=== PATIENT | female | born 2000 | race Caucasian/White ===

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

== ENCOUNTER 2023-06-02 13:45 | Outpatient (CLI) | payer BC ==
[~2023-06-02] VITALS: Ht 160 cm; Wt 89.1 kg
[~2023-06-02 13:45] MED LIST: FOLIVANE-OB1 CAP PO
[2023-06-02 14:15] VITALS: BP 123/71; PULSE 84; TEMP 98
--- NOTE | 2023-06-02 16:02 | NUR ---
PATIENT HERE AT 1345 FOR LABOR CHECK. VSS. CATEGORY 1 TRACING WITH A REACTIVE STRIP. SVE 4:80:-2. PATIENT CTX EVERY 3-[address] CHANG STRIPPED PT MEMBRANES YESTERDAY IN OFFICE. SVE 4:80:-2 YESTERDAY. SVE UPON ARRIVAL 4:80:-2. 1 HOUR RECHECK PATIENT THE SAME SVE. DR FRANCO CALLED AT 1530 TO UDATE ON [address] FRANCO OK TO DC TO HOME. PATIENT EDUCATED ON PRECAUTIONS AND SENT HOME AT 1600. PT AMBULATED OFF UNIT WITH SPOUSE
== END 2023-06-02 16:00 | disposition home or self-care (01) ==
LOC: LDRO 13:45
DX: Z34.93 Encounter for supervision of normal pregnancy, unspecified, third trimester (principal); Z3A.38 38 weeks gestation of pregnancy

== ENCOUNTER 2023-06-03 15:02 | Inpatient (IN) | payer BC ==
[~2023-06-03] VITALS: Ht 160 cm; Wt 89.1 kg
[2023-06-03] VITALS (20 sets, daily range): BP systolic 112–148; BP diastolic 60–84; PULSE 53–86; TEMP 98.2
--- NOTE | 2023-06-03 15:15 | NUR ---
PT AMBULATORY TO UNIT WITH SPOUSE. REPORTS SROM AT 1415. SVE AND AMNITRACE AT THIS TIME. SVE /-2. AMNITRACE POSITIVE. DISCUSSED POC, PT AGREES. ROLES NOTIFIED.
[2023-06-03 15:49] LABS: BASO % 0.2 % (0.0-2.0); EOS % 0.2 % (0.0-4.0); GRAN # 7.2 K/mm3 (1.4-6.5); GRAN % 72.3 % (42.2-75.2); HEMOGLOBIN 11.8 g/dl (12.5-16.0); LYMPH % 20.4 % (20.0-51.0); MEAN CELL VOLUME 87 fl (80.0-100.0); MEAN CORPUSCULAR HEMOGLOBIN 28 pg (27-31); MEAN CORPUSCULAR HGB CONC 33 g/dl (33.0-37.0); MEAN PLATELET VOLUME 11.4 fl (7.4-10.4); MONO # 0.6 K/mm3 (0.1-0.6); MONO % 6.4 % (1.7-9.3); PLATELET COUNT 240 K/mm3 (130-400); RED BLOOD COUNT 4.16 M/mm3 (4.10-5.30); REDCELL DISTRIBUTION WIDTH-CV 13.2 % (11.5-14.5)
[2023-06-03 15:53] LABS: HEMATOCRIT 36.1 % (37.0-47.0)
--- NOTE | 2023-06-03 17:49 | NUR ---
SVE PER DR. CABALLERO /-2. FOREBAG AROM AT THIS TIME.
--- NOTE | 2023-06-03 18:05 | NUR ---
PT REQUESTS EPIDURAL. JOHNNY NOTIFIED.
--- NOTE | 2023-06-03 20:15 | NUR ---
1819- JOHNNY GARCÍA AT BEDSIDE. PATIENT ASSISTED TO SIDE OF THE BED. DIFFICULTY TRACING HEART RATE DUE TO MATERNAL POSITION. PULSE OX APPLIED. 1833- TEST DOSE ADMINISTERED BY JOHNNY GARCÍA. SEE ANESTHESIA RECORDS. 1840- PATIENT REPOSITIONED TO SEMIF[facility]LERS. PLAN OF CARE AND SAFETY PRECAUTIONS EXPLAINED TO PATIENT AND FAMILY. 1899- DIFFICULTY TRACING CONTRACTIONS. MONITOR ADJUSTED. 1914- DR. CABALLERO AT BEDSIDE. 1915- SVE BY DR. CABALLERO . 1917- PITOCIN INCREASED TO 12MU PER DR. CABALLERO. 1929- DIFFICULTY TRACING HEART RATE. MONITOR ADJUSTED. 1944- DR. CABALLERO AT BEDSIDE. SVE 1951- SVE COMPLETE. DR. CABALLERO AT BEDSIDE. MCNEAL CATHETER REMOVED. PERICARE PROVIDED. 1957- SPONTANEOUS VAGINAL DELIVERY OF VIABLE BABY GIRL. CORD CLAMPED BY DR. CABALLERO AND CUT BY FOB. BABY TO MOTHER ABDOMEN. DRIED AND STIMULATED. BABY CARES ASSUMED BY Lisa HERNANDEZ RN. 2000- SPONTANEOUS DELIVERY OF INTACT PLACENTA THROUGH INTACT PERINEUM. STARTED PITOCIN AT 333ML/HR PER PROTOCOL. 2014- RECOVERY STARTED.
--- NOTE | 2023-06-03 22:50 | NUR ---
2250- PATIENT ABLE TO LIFT BILATERAL LOWER EXTREMITIES. PATIENT SITTING ON EDGE OF BED. EPIDURAL CATHETER REMOVED WITH TIP INTACT. PATIENT TOLERATED WELL. DENIES FEELING LIGHT HEADED. 2255- PATIENT AMBULATED TO RESTROOM FOLLOWING DELIVERY. PERICARE PROVIDED. HOSPITAL GOWN CHANGED. PATIENT UNABLE TO VOID AT THIS TIME. UNDERWEAR AND PAD ON. 2300- PATIENT AMBULATORY TO ROOM. PATIENT ORIENTED TO ROOM. PATIENT DENIES NEED FOR PAIN MEDICATION. QUESTIONS ENCOURAGED AND ANSWERED.
[2023-06-04 03:20] VITALS: BP 116/67; PULSE 71; TEMP 98.2
[2023-06-04 07:30] VITALS: BP 121/78; PULSE 70; TEMP 98
[2023-06-04] MEDS ORDERED: MOTRIN 800800 MG/TAB PO (09:52)
[2023-06-04 15:52] VITALS: BP 116/68; PULSE 65; TEMP 98
[2023-06-04 19:45] VITALS: BP 126/78; PULSE 57; TEMP 97.7
--- NOTE | 2023-06-04 22:00 | NUR ---
2200-DISCHARGE INSTRUCTIONS GIVEN AND QUESTIONS ANSWERED. PT SIGNS PAPERWORK. PT DISMISSED TO HOME AMBULATORY ACCOMPANIED BY SPOUSE, BABY. NURSE ESCORTS PT TO HOSPITAL EXIT.
== END 2023-06-04 22:00 | disposition home or self-care (01) | DRG 807 ==
LOC: LDRO 15:02 → LDR 15:24 → OB 06-04 00:03
PROVIDERS: ADMIT Obstetrics & Gynecology
PROC: 10E0XZZ Delivery of Products of Conception, External Approach (ICD-10-PCS; principal; 2023-06-03)
PROC: 3E033VJ Introduction of Other Hormone into Peripheral Vein, Percutaneous Approach (ICD-10-PCS; 2023-06-03)
DX: O99.214 Obesity complicating childbirth (principal); Z37.0 Single live birth; Z3A.38 38 weeks gestation of pregnancy; O76 Abnormality in fetal heart rate and rhythm complicating labor and delivery; O42.92 Full-term premature rupture of membranes, unspecified as to length of time between rupture and onset of labor
CPT/HCPCS: J2590; J2795; J7120